=== PATIENT | female | born 1940 | race Caucasian/White ===

== ENCOUNTER → 2019-09-16 | Outpatient (CLI) | payer MEDICARE ==
--- NOTE | 2019-09-16 14:48 | RAD ---
CT study of the maxillofacial bones without contrast Clinical indications: Fall. Facial injury. Possible nasal bone fracture. TECHNIQUE: Noncontrast helical CT scanning of the maxillofacial bones was performed. Multiplanar 2-D reconstructions were generated. PQRS compliance Statement One or more of the following individualized dose reduction techniques were utilized for this study: 1. Automated exposure control 2. Adjustment of the mA and/or kV according to patient size 3. Use of iterative reconstruction technique FINDINGS: Zygoma and zygomatic arch and orbit and orbital floor is intact on both sides. The nasal spine and maxilla and pterygoid plates are intact. The nasal bones are intact on both sides. The mandible is intact. There is mild anterior subluxation of the mandibular condyle within the temporal fossa of both upper mandibular joints. 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 Mild S-shaped nasal septal deviation is seen. Incidental note is made of a subarachnoid cyst of the anterior aspect of the left middle cranial fossa which measures 4 cm transversely. The orbits are symmetric. IMPRESSION: No acute fracture. 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 Electronically signed by: Corneluis Downing MD (09/16/2019 2:45 PM) [facility]
== END | disposition home or self-care (01) ==
LOC: CT 13:22
PROVIDERS: ATTEND Family Medicine
DX: S02.612A Fracture of condylar process of left mandible, initial encounter for closed fracture (principal); S02.611A Fracture of condylar process of right mandible, initial encounter for closed fracture; J34.2 Deviated nasal septum; G93.0 Cerebral cysts; W19.XXXA Unspecified fall, initial encounter; Y93.89 Activity, other specified; Y92.89 Other specified places as the place of occurrence of the external cause; Y99.8 Other external cause status
CPT/HCPCS: 70486